=== PATIENT | female | born 1990 | race Caucasian/White ===

== ENCOUNTER 2024-01-31 09:30 | Day surgery (SDC) | payer BC ==
[2024-01-24 08:08] VITALS: BP 115/87
[~2024-01-31] VITALS: Ht 177.8 cm; Wt 74.1 kg
--- NOTE | ~2024-01-31 | OR ---
[facility] [address] [place], [place] [address] Draft DATE OF OPERATION: 01/31/2024 SURGEON: Maurice Alcantara DO PREOPERATIVE DIAGNOSIS: Right dermoid cyst. POSTOPERATIVE DIAGNOSES: 1. Right dermoid cyst. 2. Bilateral endometriosis. 3. Desires bilateral salpingectomy. PROCEDURES PERFORMED: 1. Right salpingo-oophorectomy. 2. Left salpingectomy. 3. Lysis of adhesions. 4. Excision of endometriosis. INFORMATICS PHYSICIAN: Leisa Antonio M.D. ANESTHESIA: General. ESTIMATED BLOOD LOSS: 20 mL. DRAINS: Montero to gravity, removed at the end of the procedure. SPECIMENS: 1. Right tube and ovary with large ovarian mass consistent with dermoid cyst. 2. Left fallopian tube. 3. Bilateral endometriosis implants from the pelvic peritoneum bilaterally. COMPLICATIONS: None. INDICATIONS: Mrs. Obrien is a very pleasant 33-year-old female with a long history of right PATIENT NAME: ZO OBRIEN OPERATIVE REPORT DATE OF : [birth year] REPORT #: [id number] PHYSICIAN: MAURICE ALCANTARA DO (JD) PCP: YADY MCINTYRE PAC REPORT IS CONFIDENTIAL AND NOT TO BE RELEASED WITHOUT AUTHORIZATION [facility] [address] [place], [place] [address] Draft dermoid cyst. The patient with increasing symptoms of her cyst and desires excision. Ultrasound demonstrated no obvious remaining ovarian stroma. The patient also desires bilateral salpingectomy. We reviewed plan and options for attempted cystectomy versus oophorectomy, and the patient desires oophorectomy. Risks, benefits, and alternatives were discussed in detail with the patient. The patient understands and wished to proceed with the procedure. DESCRIPTION OF PROCEDURE: The patient was taken to the OR, where a time-out was performed to confirm correct patient, correct procedure. General anesthesia was adequately established. The patient was prepped and draped in dorsal lithotomy position with feet in Yellofin stirrups. ICPs were on and running and no preoperative antibiotics or heparin was indicated. A Montero catheter was inserted and a weighted speculum was placed in vagina. The anterior lip of the cervix was grasped with an Allis clamp and the cervix was gently dilated using Hegar dilators. A [employer] uterine manipulator was placed. Surgeon's gloves were changed and attention was turned to the abdomen. Just inferior to the umbilicus, the skin was infiltrated with 0.25% Marcaine with epinephrine. A curvilinear incision was made using a surgical scalpel. The fascia was grasped, elevated, and the fascia was divided using Metzenbaum scissors. Fascia was suture ligated superior and inferior with 0-Vicryl stay sutures. The peritoneum was entered bluntly and Les operative port was placed under direct visualization without complication. Pneumoperitoneum was easily established. Survey of the abdomen and pelvis was then performed and 5 mm assistant professor in family studies ports were placed in the left lower and right lower quadrant under direct visualization without complication. Normal left tube and ovary. The right ovary was enlarged, consistent with ultrasound findings suggestive of dermoid and the right fallopian tube was normal. The uterus appeared normal. There were endometriosis lesions in the right and left pelvic sidewalls that did not appear to be deep infiltrating. Attention was turned to oophorectomy. The right infundibulopelvic ligament was identified and the peritoneum lateral to this was incised. The IP was skeletonized and the ureter was noted to be well away from this with visualization. The IP was then fulgurated and divided with excellent hemostasis and Endo-loop was applied to the cut end of the IP. The right utero-ovarian ligament was fulgurated and divided and the right tube and ovary were removed without difficulty and then placed into the cul-de-sac. The endometriosis lesion of the right pelvic peritoneum was noted and the peritoneum was easily bluntly dissected away from the underlying tissue and superficial endometriosis was confirmed. Endometriotic lesion was excised sharply with excellent hemostasis with careful attention to avoid the course of the ureter. Attention was then turned to the left side, where the fallopian tube was grasped at the fimbriated end, elevated and divided along the mesosalpinx using LigaSure device. Tube was sent to Pathology for further evaluation. Endometriosis lesion of the left pelvic sidewall was evaluated and found to be well away from the ureter as well as being superficial. The peritoneum was tented. The peritoneum was nicked and the lesion undermined and excised. A small amount of PATIENT NAME: ZO OBRIEN OPERATIVE REPORT DATE OF : [birth year] REPORT #: [id number] PHYSICIAN: MAURICE ALCANTARA) PCP: YADY MCINTYRE PAC REPORT IS CONFIDENTIAL AND NOT TO BE RELEASED WITHOUT AUTHORIZATION [facility] [address] [place] [id number] Draft oozing of the peritoneal edge was made hemostatic with LigaSure device. The pelvis was irrigated and peritoneal incisions were found to be hemostatic. Attention was then turned to removal of the dermoid cysts. A large EndoCatch bag was then placed and the right tube and ovary were placed in this bag. The bag was brought up through the umbilical incision and the trocar was removed. The infraumbilical fascial incision was extended bilaterally using Metzenbaum scissors and the skin incision was extended slightly bilaterally using a surgical scalpel. The ovary was then brought through the infraumbilical incision and handed off, was opened on the back table at the end of the case. The infraumbilical fascia was then partially suture-ligated in order to replace Les operative port to resume the pneumoperitoneum. The pelvis was again irrigated, found to be hemostatic. Tisseel was applied to the dissection edges to ensure hemostasis at the end of the procedure. Pneumoperitoneum was reduced. Trocars were removed. Infraumbilical fascial incision was then repaired after applying remainder of Tisseel to the rectus. The subcu was plicated using 3-0 Vicryl in a running nonlocked manner at the infraumbilical incision and skin edges were repaired using 3-0 Vicryl in a subcuticular stitch. Excellent hemostasis and cosmesis were appreciated. Montero catheter was removed and a Hulka uterine manipulator was removed and the patient was taken to PACU in good and stable condition. Sponge, needle, and instrument counts correct x2 at the end of the procedure. Dr. Antonio was present and participated in all portions of the procedure. DO REMINGTON Harris/EMILY /[id number] Copies: ~ PATIENT NAME: ZO OBRIEN OPERATIVE REPORT DATE OF : [birth year] REPORT #: [id number] PHYSICIAN: MAURICE ALCANTARA (BOZENA) PCP: YADY MCINTYRE PAC REPORT IS CONFIDENTIAL AND NOT TO BE RELEASED WITHOUT AUTHORIZATION
[~2024-01-31 09:30] MED LIST: IBLOOD GLUCOSE TEST STRIP 1 EA TEST VI PRN; LACTATED RINGER'S 1,000 ML IV SCH; LIDOCAINE HCL 1% 5 ML SDV INJ ONE
[2024-01-31 09:40] VITALS: BP 138/86
--- NOTE | 2024-01-31 11:21 | NUR ---
1120 SPOKE WITH PT AND GAVE UPDATE ON WAIT TIME. PT AND FRIEND UNDERSTANDABLE AND AGREEABLE AT THIS TIME. ANOTHER WARM BLANKET PROVIDED TO PT.
[2024-01-31] MEDS ORDERED: KETAMINE in NS 50 MG/5 ML SYR ONE (12:21)
[2024-01-31] MEDS ORDERED: LIDOCAINE HCL 1% 30 ML SDV ONE (12:21)
[2024-01-31] MEDS ORDERED: propofoL 200 MG/20 ML VIAL ONE (12:21)
[2024-01-31] MEDS ORDERED: MIDAZOLAM HCL 2 MG/2 ML VIAL ONE (12:21)
[2024-01-31] MEDS ORDERED: ROCURONIUM BROMIDE 50 MG/5 ML SYR ONE (12:21)
[2024-01-31] MEDS ORDERED: DEXAMETHASONE SOD PHOS 4 MG/ML VIAL ONE (12:21)
[2024-01-31] MEDS ORDERED: KETOROLAC TROMETHAMINE 30 MG/ML VIAL ONE (12:21)
[2024-01-31] MEDS ORDERED: ondansetron HCL 4 MG/2 ML VIAL ONE (12:21)
[2024-01-31] MEDS ORDERED: dexmedeTOMIDine HCl 200 MCG/2 ML VIAL ONE (12:21)
[2024-01-31] MEDS ORDERED: SUGAMMADEX SODIUM 200 MG/2 ML ML ONE (12:56)
[2024-01-31] MEDS ORDERED: fentaNYL citrate 50 MCG/ML SDV IV PRN (13:00)
[2024-01-31] MEDS ORDERED: NALOXONE HCL 0.4 MG SYR IV PRN ×2 (13:00→14:45)
[2024-01-31] MEDS ORDERED: ondansetron HCL 4 MG/2 ML VIAL IV PRN ×2 (13:00→14:45)
[2024-01-31] MEDS ORDERED: IBLOOD GLUCOSE TEST STRIP 1 EA TEST VI PRN (13:00)
[2024-01-31] MEDS ORDERED: HYDROmorphone HCL 1 MG/ML SYR IV PRN (13:00)
[2024-01-31] MEDS ORDERED: LACTATED RINGER'S 1,000 ML IV ONE (13:03)
[2024-01-31] MEDS ORDERED: fentaNYL citrate 100 MCG/2 ML VIAL ONE (13:04)
[2024-01-31] MEDS ORDERED: MAGNESIUM HYDROXIDE/AL HYDROX 30 ML CUP PO PRN (14:45)
[2024-01-31] MEDS ORDERED: SIMETHICONE 125 MG TABLET CHEWABLE PO PRN (14:45)
[2024-01-31] MEDS ORDERED: FAMOTIDINE 20 MG/ 2 ML VIAL IV PRN (14:45)
[2024-01-31] MEDS ORDERED: MORPHINE SULFATE 10 MG/ML VIAL IV PRN (14:45)
[2024-01-31] MEDS ORDERED: METOCLOPRAMIDE HCL 10 MG/2 ML SDV IV PRN (14:45)
[2024-01-31] MEDS ORDERED: OXYCODONE/APAP 5/325 TAB PO PRN (14:45)
[2024-01-31] MEDS ORDERED: bisacodyL 10 MG SUPP PR PRN (14:45)
[2024-01-31] MEDS ORDERED: FAMOTIDINE 20 MG TAB PO PRN (14:45)
--- NOTE | 2024-01-31 14:52 | NUR ---
01/31/24 1452 Gisell Lee 1411-PT ARRIVED TO PACU WITH 6L/MASK REQUIRING CHIN TILT FOR AIRWAY SUPPORT. SURGICAL SITES VISUALIZED. PT WITH 3 LAP SITES TO ABD, ONE AT UMBILLICUS AND ONE AT RLQ AND ONE AT LLQ. ALL DRSGS CDI. PT WITH TONE PAD IN PLACE ALSO, NO DRAINAGE NOTED. PT UNRESPONSIVE TO NOXIOUS STIMULI. 1416-HOB ELEVATED APPROX 15 DEGREES AND ATTEMPTED TO STOP CHIN TILT, HOWEVER PT STILL REQUIRING AT THIS TIME. 1424-PT AROUSING MORE AND NO LONGER REQUIRES CHIN TILT FOR AIRWAY SUPPORT. SATS STABLE IN UPPER 90'S ON 6L/MASK. PT REPORTS NAUSEA. 1428-IV NAUSEA MEDS GIVEN. 1433-PT REPORTS NAUSEA DISSAPATING. DENIES PAIN. PT DOES REPORT URGE TO VOID. EXPLAINED CATH REMOVAL ON OR AND THAT IT CAN CAUSE IRRITATION OF URETHA AND MAKE PT FEEL THIS WAY, OFFERED BEDPAN, PT DECLINED AND OPTED TO WAIT A LITTLE LONGER. 1438-PT C/O FEELING COLD. WARM BLANKET PROVIDED. 1440-PT TIRATED TO RA. SATS REMAINS STABLE ON RA IN UPPER 90'S. 1448-RR EVEN AND UNLABORED. SATS REMAIN STABLE ON RA AT 95% OR GREATER. PT SLEEPING BUT EASILY AROUSES TO STIMULI. 1450-PT WITH DECRESAED RESPS OF 7-9. WENT TO STIMULATE PT AND PT WOKE SELF. PT HOB ELEVATED TO APPROX 30 DEGREES. PT ENCOURAGED TO COUGH AND DEEP BREATHE. PILLOW PROVIDED TO BRACE ABD TO HELP MINIMIZE DISCOMFORT.
[2024-01-31 15:06] VITALS: BP 110/74
--- NOTE | 2024-01-31 15:10 | NUR ---
1505 PT ARRIVED FROM PACU TO DAY SURGERY VIA STRECHER. PT AWAKE BUT DROWSEY. BREATHING EQUAL AND UNLABORED. PT REPORTS 5/10 PAIN THAT IS NOT VERY TOLERABLE. PT REPORTS NO NAUSEA. PT ABLE TO TOLERATE PO WATER. REPORT TAKEN FROM DIMA Guzman RN. PT RESTING IN BED WITH CALL LIGHT WITHIN REACH AND WATER WITHIN REACH AND FRIEND AT BEDSIDE. VITALS TAKEN. IV ASSESSED.
--- NOTE | 2024-01-31 15:43 | NUR ---
1535 PT REPORTS UNTOLERABLE 6/10 PAIN AT SURGICAL SITE. 1540 PAIN MEDICATION GIVEN ORALLY. PT HAS CALL LIGHT WITHIN REACH, PERSONAL ITEMS WITHIN REACH. PT FRIEND AT BEDSIDE. PT HAS BEEN ABLE TO TOLERATE PO FLUIDS AND PUDDING.
[2024-01-31 16:02] VITALS: BP 107/67
--- NOTE | 2024-01-31 16:11 | NUR ---
1600 HOURLY ROUNDING DONE WITH PT. PT PAIN 4/10 TOLERABLE. PT ABLE TO TOLERATE PO FLUIDS AND SNACKS. PT REPORTS NO NAUSEA. PT REPORTS NO SENSATION TO URINATE YET. PT REQUESTED ICE PACK, ICE PACK MADE AND GIVEN AND BARRIER PLACED BETWEEN ICE PACK AND SKIN. VITALS DONE. IV ASSESSED. PT HAS CALL LIGHT WITHIN REACH AND PERSONAL ITEMS WITHIN REACH.
--- NOTE | 2024-01-31 16:36 | NUR ---
1620 PT USED CALL LIGHT TO INFORM NURSE OF NEED TO URINATE. PT ABLE TO AMBULATE TO BATHROOM AND VOID 300 MLS OF RED URINE WITH 2 SMALL BLOOD CLOTS. 1625 VIZUALIZED PT LAP SITES. RIGHT LAP SITE HAS HARD GOLF BALL SIZED MASS UNDER LAP SITE. CALLED MD WITH UPDATE ON PT IN REGARDS TO MASS. MD GAVE VERBAL ORDER TO APPLY ICE AND PRESSURE TO SITE AND MD WOULD BE DOWN SOON TO SEE PATIENT. 1630 ICE AND PRESSURE APPLIED TO SITE PER MD ORDER. PT HAS CALL LIGHT AND PERSONAL ITEMS WITHIN REACH. PT UPDATED ON MD COMING DOWN TO SEE LAP SITES.
[2024-01-31] MEDS ORDERED: SIMETHICONE 125 MG TABLET CHEWABLE PO SCH (17:00)
[2024-01-31 17:04] VITALS: BP 115/71
--- NOTE | 2024-01-31 17:06 | NUR ---
1705 VITALS TAKEN HOURLY ROUNDING DONE. IV ASSESSED. /10 TOLERABLE PAIN. PT STILL HAS GOLF BALL SIZED LUMP UNDER RIGHT SIDE LAP SITE. AWAITING DR TO COME SEE PATIENT. ICE AND PRESSURE APPLIED TO SITE PER DR'S ORDER. PT HAS CALL LIGHT WITHIN REACH, PERSONAL ITEMS WITHIN REACH AND FRIEND AT BEDSIDE.
--- NOTE | 2024-01-31 17:26 | NUR ---
1520 DR EASLEY SPOKE WITH PT AND LOOKED AT LAP SITES. SAID PT WAS OKAY TO GO HOME. PT IS TO KEEP ICE AND PRESSURE ON LAP SITE OVERNIGHT. PT IS TO COME IN IF LUMP GROWS IN SIZE OR BECOMES PAINFUL. PT IS AWARE. NO QUESTIONS AT THIS TIME.
--- NOTE | 2024-01-31 17:41 | NUR ---
1730 DISCHARGE INFORMATION GONE OVER WITH PT AND FRIEND AT BEDSIDE. NO QUESTIONS AT THIS TIME. PT VERBALIZES UNDERSTANDING. IV DISCONTINUED FOR DISCHARGE. 1735 PT DISCHARGE FROM DAY SURGERY VIA WHEELCHAIR TO THE FRONT OF THE HOSPITAL TO PT'S FRIEND'S CAR.
--- NOTE | 2024-02-06 16:12 | PATH ---
[facility] [address] [place], [place] [address] Signed SPECIMEN(S): A RIGHT OVARY, DERMOID CYST SPECIMEN(S): B FALLOPIAN TUBES, BILATERAL, RIGHT OVARY SPECIMEN SOURCE: A. RIGHT OVARY, DERMOID CYST B. FALLOPIAN TUBES, BILATERAL, RIGHT OVARY CLINICAL HISTORY: Dermoid cyst right ovary FINAL PATHOLOGIC DIAGNOSIS: A. Peritoneum, right pelvic sidewall, biopsy: - Peritoneal tissue with no significant pathologic changes B. Bilateral fallopian tubes and right ovary, bilateral salpingectomy with right oophorectomy: - Ovary with a mature cystic teratoma (dermoid cyst) - Bilateral fallopian tubes with no significant pathologic changes BRP MICROSCOPIC EXAMINATION: Histologic sections of all submitted blocks are examined by light microscopy. These findings, together with the gross examination, support the pathologic diagnosis. GROSS DESCRIPTION: A. The specimen, labeled and designated "Steenbuck, endometriosis right pelvic sidewall," is received in formalin and consists of a rahman-pink, fibromembranous soft tissue fragment (2.3 x 1.0 x 0.4 cm) which is sectioned and submitted entirely in A1. B. The specimen, labeled and designated "Steenbuck, right ovary and right tube (fallopian); left fallopian tube," is received in formalin and consists of a disrupted ovary (13.0 x 8.0 x 4.5 cm in aggregate, 92 g) with attached right fallopian tube (7.2 cm in length by 0.6 cm in diameter) and detached left fallopian tube (7.1 cm in length by 0.5 cm in diameter). The ovary contains a cystic space (8.0 cm in greatest dimension) filled with rahman-yellow, grumous material and blond hair. Both fimbriated fallopian tubes are sectioned to reveal rahman-pink cut surfaces with a pinpoint lumen. Audio Experience Expert sections are submitted in B1-B5. Cassette Summary: (B1-B2) ovary, abrasives sales representative PATIENT NAME: ZO CANNON PATHOLOGY DATE OF : [birth year] REPORT #: [id number] PHYSICIAN: PAT MENDEZ PCP: YADY MCINTYRE PAC REPORT IS CONFIDENTIAL AND NOT TO BE RELEASED WITHOUT AUTHORIZATION [facility] [address] [place], [place] [address] Signed (B3) abrasives sales representative cross-sections of left fallopian tube and entire bisected fimbria (B4-B5) abrasives sales representative cross-sections of right fallopian tube and entire bisected fimbria KG (under the direct supervision of a pathologist) The Gross Description was prepared using a voice recognition system. The report was reviewed for accuracy; however, sound-alike word errors, addition and/or deletions may occur. If there is any question about this report, please contact Client Services. ADDITIONAL NOTES: Immunohistochemical and/or in situ hybridization studies if performed in this case included appropriate positive controls that reacted as expected. This test was developed and its performance characteristics determined by [facility]. It has not been cleared or approved by the U.S. Food and Drug Administration. The FDA has determined that such clearance or approval is not necessary. This test is used for clinical purposes. It should not be regarded as investigational or for research. [facility] is certified under the Clinical Laboratory Improvement Amendments of 1988 (CLIA) as qualified to perform high complexity clinical laboratory testing. PERFORMING LABORATORY: Technical component was performed by [facility], [address] [place] [address] (CLIA# [id number]). Professional interpretation was performed by [facility] [address] [place] [phone] [id number] Diagnostician: Major Dangelo MD Pathologist Electronically Signed 02/06/2024 Copies: ~ PATIENT NAME: ZO CANNON PATHOLOGY DATE OF : [birth year] REPORT #: [id number] PHYSICIAN: PAT MENDEZ PCP: YADY MCINTYRE PAC REPORT IS CONFIDENTIAL AND NOT TO BE RELEASED WITHOUT AUTHORIZATION
== END 2024-01-31 17:35 | disposition home or self-care (01) ==
LOC: OPS 09:30 → DS 09:30 → OPS 11:00 → DS 11:00 → OPS 13:00
PROVIDERS: ATTEND Obstetrics & Gynecology
PROC: 0UB24ZZ Excision of Bilateral Ovaries, Percutaneous Endoscopic Approach (ICD-10-PCS; 2024-01-31)
PROC: 0UB74ZZ Excision of Bilateral Fallopian Tubes, Percutaneous Endoscopic Approach (ICD-10-PCS; principal; 2024-01-31 13:00)
DX: N80.00 Endometriosis of the uterus, unspecified (principal); D27.0 Benign neoplasm of right ovary; Z88.0 Allergy status to penicillin
CPT/HCPCS: 00840; A9270; J1100; J1885; J2250; J2405; J2704; J3010; J3490; J7121